=== PATIENT | male | born 1990 | race American Indian/Alaskan Native ===

== ENCOUNTER 2021-08-15 22:07 | Emergency (ER) | payer SELFPAY ==
[2021-08-16] MEDS ORDERED: LORazepam 2 MG/ML VIAL IM PRN ×2 (00:18→06:13)
[2021-08-16] MEDS ORDERED: HALOPERIDOL LACTATE 5 MG/1 ML INJ IM PRN (00:18)
[2021-08-16] MEDS ORDERED: diphenhydrAMINE 50 MG/ML VIAL IM PRN (00:18)
--- NOTE | 2021-08-16 00:28 | Emergency Department Report ---
HPI - HPI HPI: Room 20 The patient is a 31-year-old male present with a chief complaint of suicidal ideation. Patient has a history of schizophrenia and states he developed suicidal ideation today. Patient admits to suicidal ideation and auditory hallucinations. Per EMS the patient was "out of control" with family and EMS was called. No specifics were given to EMS about the patient's behavior. EMS arrived on scene states that the patient was erratic and spitting requiring a spit shield to be placed over the patient as well as restraints. Patient was administered 5 of Versed and 5 Haldol by EMS prior to arrival. In the ED the patient is more calm with flat affect and states he tried to kill himself today by jumping off of a balcony. Patient complains of back pain. Patient also admits of auditory hallucinations stating the voices say "the illuminati..." <HENRY ERIC - Last Filed: 08/16/21 03:05> <DANE KIRKLAND - Last Filed: 08/16/21 12:04> - General Chief Complaint: Psych Time Seen by Provider: 08/16/21 00:09 ED Past Medical Hx - Past Medical History Hx Hypertension: Yes Hx Psychiatric Treatment: Yes (Schizophrenia) Additional medical history: schizophrenia - Surgical History Past Surgical History?: No - Family History Family history: no significant - Social History Smoking Status: Current Every Day Smoker (1/5 pack/day) Substance Use Type: None (Denies illicit drug use), Alcohol (Occasional) <HENRY ERIC - Last Filed: 08/16/21 03:05> ED Review of Systems ROS: Stated complaint: MH Other details as noted in HPI Constitutional: no symptoms reported Eyes: denies: eye pain ENT: denies: throat pain Respiratory: no symptoms reported Cardiovascular: denies: chest pain Endocrine: no symptoms reported Gastrointestinal: denies: abdominal pain Genitourinary: denies: dysuria Musculoskeletal: back pain Neurological: denies: headache Psychiatric: auditory hallucinations, suicidal thoughts <HENRY ERIC - Last Filed: 08/16/21 03:05> ROS: Stated complaint: MH Other details as noted in HPI <DANE KIRKLAND - Last Filed: 08/16/21 12:04> Physical Exam - Physical Exam Vital Signs: Vital Signs 08/15/21 22:08 Pulse Rate 127 H Respiratory 18 Rate Blood Pressure 122/60 O2 Sat by Pulse 96 Oximetry Physical Exam: GENERAL: The patient is well-developed well-nourished male lying on stretcher not appearing to be in acute distress. [] HEENT: Normocephalic. Atraumatic. Extraocular motions are intact. Patient has moist mucous membranes. NECK: Supple. Trachea midline CHEST/LUNGS: Clear to auscultation. There is no respiratory distress noted. HEART/CARDIOVASCULAR: Regular. There is tachycardia. There is no gallop rub or murmur. ABDOMEN: Abdomen is soft, nontender. Patient has normal bowel sounds. There is no abdominal distention. SKIN: There is no rash. There is no edema. There is no diaphoresis. NEURO: The patient is awake, alert, and oriented with a flat affect. The patient is cooperative. The patient has no focal neurologic deficits. The patient has normal speech. GCS 15 MUSCULOSKELETAL: There is mild lower thoracic/upper lumbar discomfort to palpation. No axial step-off. There is no evidence of acute injury. <HENRY ERIC - Last Filed: 08/16/21 03:05> - Physical Exam Vital Signs: Vital Signs 08/15/21 08/16/21 22:08 06:11 Temperature 98.3 F Pulse Rate 127 H 85 Respiratory 18 18 Rate Blood Pressure 122/60 Blood Pressure 124/88 [Right] O2 Sat by Pulse 96 98 Oximetry <DANE KIRKLAND - Last Filed: 08/16/21 12:04> ED Course Vital Signs 08/15/21 22:08 Pulse Rate 127 H Respiratory 18 Rate Blood Pressure 122/60 O2 Sat by Pulse 96 Oximetry <HENRY ERIC - Last Filed: 08/16/21 03:05> Vital Signs 08/15/21 08/16/21 22:08 06:11 Temperature 98.3 F Pulse Rate 127 H 85 Respiratory 18 18 Rate Blood Pressure 122/60 Blood Pressure 124/88 [Right] O2 Sat by Pulse 96 98 Oximetry - Reevaluation(s) Reevaluation #1: 08/16/21 06:12 Assumed care of patient from overnight physician, Dr. Eric Repeat vital signs are reviewed and appreciated. Patient resting comfortably in stretcher and in no acute distress. Vital signs normalized. Initial basic metabolic panel reviewed and appreciated, decreased CO2 likely secondary to history of hyperventilation, likely secondary to acute psychosis. A 1013 signed. Repeat basic metabolic panel is ordered. Reassess. 08/16/21 09:50 Repeat basic metabolic panel is markedly improved and essentially within normal limits. Patient resting comfortably in stretcher and in no acute distress. COVID swab is pending, and the emergency room will follow along as the patient provides the sample. At this point in time, the patient does not appear to have an immediate medical contraindication to psychiatric admission, evaluation, consultation and placement 08/16/21 12:02 Laboratory studies are unremarkable. The psychiatric team have interviewed the patient and recommended that he does not meet criteria for 1013 hold or involuntary hold. Therefore, this patient will be discharged. Resources provided by [facility]. <DANE KIRKLAND - Last Filed: 08/16/21 12:04> ED Medical Decision Making - Lab Data Result diagrams: 08/16/21 01:10 08/16/21 01:10 - Radiology Data Radiology results: report reviewed (Thoracic spine x-ray, lumbar spine x-ray), image reviewed (Thoracic spine x-ray, lumbar spine x-ray) interpreted by me: Thoracic spine x-ray-no definite fracture seen Lumbar spine x-ray-no acute fracture seen [facility] [address] [place] [address] XRay Report Signed Patient: NIA SKELTON JR MR#: [id number] : 1990 Acct:[id number] Age/Sex: 31 / M ADM Date: 08/15/21 Loc: ED Attending Dr: Ordering Physician: HENRY ERIC MD Date of Service: 08/16/21 Procedure(s): XR spine thoracic 2V Accession Number(s): [id number] cc: HENRY ERIC MD Fluoro Time In Minutes: THORACIC SPINE 2 VIEWS INDICATION / CLINICAL INFORMATION: Pain after reported jump from [place]. COMPARISON: None available. FINDINGS: VERTEBRAE: No acute fracture. No significant malalignment. DISC SPACES / FACET JOINTS:No significant abnormality. PARASPINAL SOFT TISSUES:No significant abnormality. ADDITIONAL FINDINGS: None. IMPRESSION: 1. No evidence of acute osseous injury. No significant degenerative changes. Signer Name: Vincenzo Alexander II, MD Signed: 08/16/2021 12:56 AM Workstation Name: [id number] Transcribed By: JESSICA Dictated By: VINCENZO ALEXANDER II, MD Electronically Authenticated By: VINCENZO ALEXANDER II, MD Signed Date/Time: 08/16/2155 DD/ TD/TT: Print Cancel [facility] [address] [place] [address] XRay Report Signed Patient: NIA SKELTON JR MR#: [id number] : 1990 Acct:[id number] Age/Sex: 31 / M ADM Date: 08/15/21 Loc: ED Attending Dr: Ordering Physician: HENRY ERIC MD Date of Service: 08/16/21 Procedure(s): XR spine lumbosacral 2-3V Accession Number(s): [id number] cc: HENRY ERIC MD Fluoro Time In Minutes: LUMBAR SPINE 3 VIEWS INDICATION / CLINICAL INFORMATION: Pain after reported jump from [employer]. COMPARISON: None available. FINDINGS: VERTEBRAE: No acute fracture. Minimal scoliotic deformity. DISC SPACES / FACET JOINTS:No significant abnormality. PARASPINAL SOFT TISSUES:No significant abnormality. ADDITIONAL FINDINGS: None. IMPRESSION: 1. No significant degenerative changes, no acute findings. Signer Name: Vincenzo Alexander II, MD Signed: 08/16/2021 12:57 AM Workstation Name: [id number] Transcribed By: JESSICA Dictated By: VINCENZO ALEXANDER II, MD Electronically Authenticated By: VINCENZO ALEXANDER II, MD Signed Date/Time: 08/16/2156 DD/ TD/TT: - Medical Decision Making Patient agitated and hyperventilating prior to medication likely reason for decreased CO2 on labs. Recheck chemistries after sedation - Differential Diagnosis Suicidal ideation, lumbar strain, lumbar fracture <HENRY ERIC - Last Filed: 08/16/21 03:05> - Lab Data Result diagrams: 08/16/21 01:10 08/16/21 08:19 Vital Signs 08/15/21 08/16/21 22:08 06:11 Temperature 98.3 F Pulse Rate 127 H 85 Respiratory 18 18 Rate Blood Pressure 122/60 Blood Pressure 124/88 [Right] O2 Sat by Pulse 96 98 Oximetry Lab Results 08/16/21 08/16/21 08/16/21 Range/Units 01:10 01:10 01:10 WBC 10.3 (4.5-11.0) K/mm3 RBC 4.88 (3.65-5.03) M/mm3 Hgb 14.0 (11.8-15.2) gm/dl Hct 42.7 (35.5-45.6) % MCV 88 (84-94) fl MCH 29 (28-32) pg MCHC 33 (32-34) % RDW 13.8 (13.2-15.2) % Plt Count 316 (140-440) K/mm3 Lymph % (Auto) 20.9 (13.4-35.0) % [place] % (Auto) 9.5 H (0.0-7.3) % Eos % (Auto) 0.1 (0.0-4.3) % Baso % (Auto) 0.4 (0.0-1.8) % Lymph # (Auto) 2.1 (1.2-5.4) K/mm3 [place] # (Auto) 1.0 H (0.0-0.8) K/mm3 Eos # (Auto) 0.0 (0.0-0.4) K/mm3 Baso # (Auto) 0.0 (0.0-0.1) K/mm3 Seg Neutrophils % 69.1 (40.0-70.0) % Seg Neutrophils # 7.1 (1.8-7.7) K/mm3 Sodium 143 (137-145) mmol/L Potassium 3.4 L (3.6-5.0) mmol/L Chloride 100.6 (98-107) mmol/L Carbon Dioxide 13 L (22-30) mmol/L Anion Gap 33 mmol/L BUN 11 (9-20) mg/dL Creatinine 1.8 H (0.8-1.3) mg/dL Estimated GFR 54 ml/min BUN/Creatinine Ratio 6 % Glucose 152 H (75-100) mg/dL Calcium 10.0 (8.4-10.2) mg/dL Total Bilirubin 0.50 (0.1-1.2) mg/dL AST 22 (5-40) units/L ALT 24 (7-56) units/L Alkaline Phosphatase 97 (35-129) units/L Total Protein 7.9 (6.3-8.2) g/dL Albumin 4.8 (3.9-5) g/dL Albumin/Globulin Ratio 1.5 % Urine Color (Yellow) Urine Turbidity (Clear) Urine pH (5.0-7.0) Ur Specific [place] (1.003-1.030) Urine Protein (Negative) mg/dL Urine Glucose (UA) (Negative) mg/dL Urine Ketones (Negative) mg/dL Urine Blood (Negative) Urine Nitrite (Negative) Urine Bilirubin (Negative) Urine Urobilinogen (<2.0) mg/dL Ur Leukocyte Esterase (Negative) Urine WBC (Auto) (0.0-6.0) /HPF Urine RBC (Auto) (0.0-6.0) /HPF U Epithel Cells (Auto) (0-13.0) /HPF Urine Mucus /HPF Salicylates < 0.3 L (2.8-20.0) mg/dL Urine Opiates Screen Urine Methadone Screen Acetaminophen (10.0-30.0) ug/mL Ur Barbiturates Screen Ur Phencyclidine Scrn Ur Amphetamines Screen U Benzodiazepines Scrn Urine Cocaine Screen U Marijuana (THC) Screen Drugs of Abuse Note Plasma/Serum Alcohol (0-0.07) % 08/16/21 08/16/21 08/16/21 Range/Units 01:10 01:10 01:31 WBC (4.5-11.0) K/mm3 RBC (3.65-5.03) M/mm3 Hgb (11.8-15.2) gm/dl Hct (35.5-45.6) % MCV (84-94) fl MCH (28-32) pg MCHC (32-34) % RDW (13.2-15.2) % Plt Count (140-440) K/mm3 Lymph % (Auto) (13.4-35.0) % [place] % (Auto) (0.0-7.3) % Eos % (Auto) (0.0-4.3) % Baso % (Auto) (0.0-1.8) % Lymph # (Auto) (1.2-5.4) K/mm3 [place] # (Auto) (0.0-0.8) K/mm3 Eos # (Auto) (0.0-0.4) K/mm3 Baso # (Auto) (0.0-0.1) K/mm3 Seg Neutrophils % (40.0-70.0) % Seg Neutrophils # (1.8-7.7) K/mm3 Sodium (137-145) mmol/L Potassium (3.6-5.0) mmol/L Chloride (98-107) mmol/L Carbon Dioxide (22-30) mmol/L Anion Gap mmol/L BUN (9-20) mg/dL Creatinine (0.8-1.3) mg/dL Estimated GFR ml/min BUN/Creatinine Ratio % Glucose (75-100) mg/dL Calcium (8.4-10.2) mg/dL Total Bilirubin (0.1-1.2) mg/dL AST (5-40) units/L ALT (7-56) units/L Alkaline Phosphatase (35-129) units/L Total Protein (6.3-8.2) g/dL Albumin (3.9-5) g/dL Albumin/Globulin Ratio % Urine Color Yellow (Yellow) Urine Turbidity Clear (Clear) Urine pH 5.0 (5.0-7.0) Ur Specific [place] 1.014 (1.003-1.030) Urine Protein <15 mg/dl (Negative) mg/dL Urine Glucose (UA) Neg (Negative) mg/dL Urine Ketones Neg (Negative) mg/dL Urine Blood Neg (Negative) Urine Nitrite Neg (Negative) Urine Bilirubin Neg (Negative) Urine Urobilinogen < 2.0 (<2.0) mg/dL Ur Leukocyte Esterase Neg (Negative) Urine WBC (Auto) 2.0 (0.0-6.0) /HPF Urine RBC (Auto) 1.0 (0.0-6.0) /HPF U Epithel Cells (Auto) 1.0 (0-13.0) /HPF Urine Mucus Few /HPF Salicylates (2.8-20.0) mg/dL Urine Opiates Screen Urine Methadone Screen Acetaminophen 5.0 L (10.0-30.0) ug/mL Ur Barbiturates Screen Ur Phencyclidine Scrn Ur Amphetamines Screen U Benzodiazepines Scrn Urine Cocaine Screen U Marijuana (THC) Screen Drugs of Abuse Note Plasma/Serum Alcohol < 0.01 (0-0.07) % 08/16/21 Range/Units 01:31 WBC (4.5-11.0) K/mm3 RBC (3.65-5.03) M/mm3 Hgb (11.8-15.2) gm/dl Hct (35.5-45.6) % MCV (84-94) fl MCH (28-32) pg MCHC (32-34) % RDW (13.2-15.2) % Plt Count (140-440) K/mm3 Lymph % (Auto) (13.4-35.0) % [place] % (Auto) (0.0-7.3) % Eos % (Auto) (0.0-4.3) % Baso % (Auto) (0.0-1.8) % Lymph # (Auto) (1.2-5.4) K/mm3 [place] # (Auto) (0.0-0.8) K/mm3 Eos # (Auto) (0.0-0.4) K/mm3 Baso # (Auto) (0.0-0.1) K/mm3 Seg Neutrophils % (40.0-70.0) % Seg Neutrophils # (1.8-7.7) K/mm3 Sodium (137-145) mmol/L Potassium (3.6-5.0) mmol/L Chloride (98-107) mmol/L Carbon Dioxide (22-30) mmol/L Anion Gap mmol/L BUN (9-20) mg/dL Creatinine (0.8-1.3) mg/dL Estimated GFR ml/min BUN/Creatinine Ratio % Glucose (75-100) mg/dL Calcium (8.4-10.2) mg/dL Total Bilirubin (0.1-1.2) mg/dL AST (5-40) units/L ALT (7-56) units/L Alkaline Phosphatase (35-129) units/L Total Protein (6.3-8.2) g/dL Albumin (3.9-5) g/dL Albumin/Globulin Ratio % Urine Color (Yellow) Urine Turbidity (Clear) Urine pH (5.0-7.0) Ur Specific [place] (1.003-1.030) Urine Protein (Negative) mg/dL Urine Glucose (UA) (Negative) mg/dL Urine Ketones (Negative) mg/dL Urine Blood (Negative) Urine Nitrite (Negative) Urine Bilirubin (Negative) Urine Urobilinogen (<2.0) mg/dL Ur Leukocyte Esterase (Negative) Urine WBC (Auto) (0.0-6.0) /HPF Urine RBC (Auto) (0.0-6.0) /HPF U Epithel Cells (Auto) (0-13.0) /HPF Urine Mucus /HPF Salicylates (2.8-20.0) mg/dL Urine Opiates Screen Presumptive negative Urine Methadone Screen Presumptive negative Acetaminophen (10.0-30.0) ug/mL Ur Barbiturates Screen Presumptive negative Ur Phencyclidine Scrn Presumptive negative Ur Amphetamines Screen Presumptive negative U Benzodiazepines Scrn Presumptive positive Urine Cocaine Screen Presumptive negative U Marijuana (THC) Screen Presumptive negative Drugs of Abuse Note Disclamer Plasma/Serum Alcohol (0-0.07) % Lab Results 08/16/21 08/16/21 08/16/21 Range/Units 01:10 01:10 01:10 WBC 10.3 (4.5-11.0) K/mm3 RBC 4.88 (3.65-5.03) M/mm3 Hgb 14.0 (11.8-15.2) gm/dl Hct 42.7 (35.5-45.6) % MCV 88 (84-94) fl MCH 29 (28-32) pg MCHC 33 (32-34) % RDW 13.8 (13.2-15.2) % Plt Count 316 (140-440) K/mm3 Lymph % (Auto) 20.9 (13.4-35.0) % [place] % (Auto) 9.5 H (0.0-7.3) % Eos % (Auto) 0.1 (0.0-4.3) % Baso % (Auto) 0.4 (0.0-1.8) % Lymph # (Auto) 2.1 (1.2-5.4) K/mm3 [place] # (Auto) 1.0 H (0.0-0.8) K/mm3 Eos # (Auto) 0.0 (0.0-0.4) K/mm3 Baso # (Auto) 0.0 (0.0-0.1) K/mm3 Seg Neutrophils % 69.1 (40.0-70.0) % Seg Neutrophils # 7.1 (1.8-7.7) K/mm3 Sodium 143 (137-145) mmol/L Potassium 3.4 L (3.6-5.0) mmol/L Chloride 100.6 (98-107) mmol/L Carbon Dioxide 13 L (22-30) mmol/L Anion Gap 33 mmol/L BUN 11 (9-20) mg/dL Creatinine 1.8 H (0.8-1.3) mg/dL Estimated GFR 54 ml/min BUN/Creatinine Ratio 6 % Glucose 152 H (75-100) mg/dL Calcium 10.0 (8.4-10.2) mg/dL Total Bilirubin 0.50 (0.1-1.2) mg/dL AST 22 (5-40) units/L ALT 24 (7-56) units/L Alkaline Phosphatase 97 (35-129) units/L Total Protein 7.9 (6.3-8.2) g/dL Albumin 4.8 (3.9-5) g/dL Albumin/Globulin Ratio 1.5 % Urine Color (Yellow) Urine Turbidity (Clear) Urine pH (5.0-7.0) Ur Specific [place] (1.003-1.030) Urine Protein (Negative) mg/dL Urine Glucose (UA) (Negative) mg/dL Urine Ketones (Negative) mg/dL Urine Blood (Negative) Urine Nitrite (Negative) Urine Bilirubin (Negative) Urine Urobilinogen (<2.0) mg/dL Ur Leukocyte Esterase (Negative) Urine WBC (Auto) (0.0-6.0) /HPF Urine RBC (Auto) (0.0-6.0) /HPF U Epithel Cells (Auto) (0-13.0) /HPF Urine Mucus /HPF Salicylates < 0.3 L (2.8-20.0) mg/dL Urine Opiates Screen Urine Methadone Screen Acetaminophen (10.0-30.0) ug/mL Ur Barbiturates Screen Ur Phencyclidine Scrn Ur Amphetamines Screen U Benzodiazepines Scrn Urine Cocaine Screen U Marijuana (THC) Screen Drugs of Abuse Note Plasma/Serum Alcohol (0-0.07) % 08/16/21 08/16/21 08/16/21 Range/Units 01:10 01:10 01:31 WBC (4.5-11.0) K/mm3 RBC (3.65-5.03) M/mm3 Hgb (11.8-15.2) gm/dl Hct (35.5-45.6) % MCV (84-94) fl MCH (28-32) pg MCHC (32-34) % RDW (13.2-15.2) % Plt Count (140-440) K/mm3 Lymph % (Auto) (13.4-35.0) % [place] % (Auto) (0.0-7.3) % Eos % (Auto) (0.0-4.3) % Baso % (Auto) (0.0-1.8) % Lymph # (Auto) (1.2-5.4) K/mm3 [place] # (Auto) (0.0-0.8) K/mm3 Eos # (Auto) (0.0-0.4) K/mm3 Baso # (Auto) (0.0-0.1) K/mm3 Seg Neutrophils % (40.0-70.0) % Seg Neutrophils # (1.8-7.7) K/mm3 Sodium (137-145) mmol/L Potassium (3.6-5.0) mmol/L Chloride (98-107) mmol/L Carbon Dioxide (22-30) mmol/L Anion Gap mmol/L BUN (9-20) mg/dL Creatinine (0.8-1.3) mg/dL Estimated GFR ml/min BUN/Creatinine Ratio % Glucose (75-100) mg/dL Calcium (8.4-10.2) mg/dL Total Bilirubin (0.1-1.2) mg/dL AST (5-40) units/L ALT (7-56) units/L Alkaline Phosphatase (35-129) units/L Total Protein (6.3-8.2) g/dL Albumin (3.9-5) g/dL Albumin/Globulin Ratio % Urine Color Yellow (Yellow) Urine Turbidity Clear (Clear) Urine pH 5.0 (5.0-7.0) Ur Specific [place] 1.014 (1.003-1.030) Urine Protein <15 mg/dl (Negative) mg/dL Urine Glucose (UA) Neg (Negative) mg/dL Urine Ketones Neg (Negative) mg/dL Urine Blood Neg (Negative) Urine Nitrite Neg (Negative) Urine Bilirubin Neg (Negative) Urine Urobilinogen < 2.0 (<2.0) mg/dL Ur Leukocyte Esterase Neg (Negative) Urine WBC (Auto) 2.0 (0.0-6.0) /HPF Urine RBC (Auto) 1.0 (0.0-6.0) /HPF U Epithel Cells (Auto) 1.0 (0-13.0) /HPF Urine Mucus Few /HPF Salicylates (2.8-20.0) mg/dL Urine Opiates Screen Urine Methadone Screen Acetaminophen 5.0 L (10.0-30.0) ug/mL Ur Barbiturates Screen Ur Phencyclidine Scrn Ur Amphetamines Screen U Benzodiazepines Scrn Urine Cocaine Screen U Marijuana (THC) Screen Drugs of Abuse Note Plasma/Serum Alcohol < 0.01 (0-0.07) % 08/16/21 08/16/21 Range/Units 01:31 08:19 WBC (4.5-11.0) K/mm3 RBC (3.65-5.03) M/mm3 Hgb (11.8-15.2) gm/dl Hct (35.5-45.6) % MCV (84-94) fl MCH (28-32) pg MCHC (32-34) % RDW (13.2-15.2) % Plt Count (140-440) K/mm3 Lymph % (Auto) (13.4-35.0) % [place] % (Auto) (0.0-7.3) % Eos % (Auto) (0.0-4.3) % Baso % (Auto) (0.0-1.8) % Lymph # (Auto) (1.2-5.4) K/mm3 [place] # (Auto) (0.0-0.8) K/mm3 Eos # (Auto) (0.0-0.4) K/mm3 Baso # (Auto) (0.0-0.1) K/mm3 Seg Neutrophils % (40.0-70.0) % Seg Neutrophils # (1.8-7.7) K/mm3 Sodium 141 (137-145) mmol/L Potassium 4.3 D (3.6-5.0) mmol/L Chloride 106.0 (98-107) mmol/L Carbon Dioxide 22 D (22-30) mmol/L Anion Gap 17 mmol/L BUN 10 (9-20) mg/dL Creatinine 1.2 (0.8-1.3) mg/dL Estimated GFR > 60 ml/min BUN/Creatinine Ratio 8 % Glucose 80 (75-100) mg/dL Calcium 9.9 (8.4-10.2) mg/dL Total Bilirubin (0.1-1.2) mg/dL AST (5-40) units/L ALT (7-56) units/L Alkaline Phosphatase (35-129) units/L Total Protein (6.3-8.2) g/dL Albumin (3.9-5) g/dL Albumin/Globulin Ratio % Urine Color (Yellow) Urine Turbidity (Clear) Urine pH (5.0-7.0) Ur Specific [place] (1.003-1.030) Urine Protein (Negative) mg/dL Urine Glucose (UA) (Negative) mg/dL Urine Ketones (Negative) mg/dL Urine Blood (Negative) Urine Nitrite (Negative) Urine Bilirubin (Negative) Urine Urobilinogen (<2.0) mg/dL Ur Leukocyte Esterase (Negative) Urine WBC (Auto) (0.0-6.0) /HPF Urine RBC (Auto) (0.0-6.0) /HPF U Epithel Cells (Auto) (0-13.0) /HPF Urine Mucus /HPF Salicylates (2.8-20.0) mg/dL Urine Opiates Screen Presumptive negative Urine Methadone Screen Presumptive negative Acetaminophen (10.0-30.0) ug/mL Ur Barbiturates Screen Presumptive negative Ur Phencyclidine Scrn Presumptive negative Ur Amphetamines Screen Presumptive negative U Benzodiazepines Scrn Presumptive positive Urine Cocaine Screen Presumptive negative U Marijuana (THC) Screen Presumptive negative Drugs of Abuse Note Disclamer Plasma/Serum Alcohol (0-0.07) % <DANE KIRKLAND - Last Filed: 08/16/21 12:04> Critical care attestation.: If time is entered above; I have spent that time in minutes in the direct care of this critically ill patient, excluding procedure time. <HENRY ERIC - Last Filed: 08/16/21 03:05> Critical care attestation.: If time is entered above; I have spent that time in minutes in the direct care of this critically ill patient, excluding procedure time. <DANE KIRKLAND - Last Filed: 08/16/21 12:04> ED Disposition <HENRY ERIC - Last Filed: 08/16/21 03:05> Is pt being admited?: No Does the pt Need Aspirin: No <DANE KIRKLAND - Last Filed: 08/16/21 12:04> Clinical Impression: Encounter for behavioral health screening Disposition: HOME / SELF CARE / HOMELESS Condition: Stable Additional Instructions: Please continue current outpatient medications. Please avoid consumption of alcohol, tobacco and smoke products. Follow-up with outpatient resources that have have been provided to you. Follow-up with your primary care doctor within the next month. Follow-up with a psychiatrist within the next week. Please return to the emergency room right away with new pain, worsened pain, migration of pain, projectile vomiting, change in mental status, confusion, inability tolerate liquid feeds, new, worsened or different symptoms not present on the initial emergency room evaluation Professional and Agency Contacts To help [facility] (09/11) [place] Crisis Line: Suicide Prevention Line: Crisis Text Line: Text START to 209775 Emergency: 911 Outpatient COMMUNITY Behavioral Health Resources: [facility]: [facility] [address] [place], [place] [address] [facility] [address] [place] [address] Wednesday thru Wednesday - 8am - 5pm Call to schedule an assessment for mental health and substance abuse programs [facility] Address: [address] [place] [address] Wednesday thru Wednesday- 7am-2pm [facility] Address: [address] [place] [address] Wednesday thru Wednesday: 8:30AM-5PM Referrals: [facility] [Provider Group] - 3-5 Days [facility] [Outside] - 3-5 Days [facility] [Outside] - 3-5 Days
[2021-08-16] MEDS ORDERED: ZIPRASIDONE MESYLATE 20 MG VIAL IM ONE ×2 (00:35→00:45)
--- NOTE | 2021-08-16 01:01 | XRay Report ---
THORACIC SPINE 2 VIEWS INDICATION / CLINICAL INFORMATION: Pain after reported jump from [place]. COMPARISON: None available. FINDINGS: VERTEBRAE: No acute fracture. No significant malalignment. DISC SPACES / FACET JOINTS:No significant abnormality. PARASPINAL SOFT TISSUES:No significant abnormality. ADDITIONAL FINDINGS: None. IMPRESSION: 1. No evidence of acute osseous injury. No significant degenerative changes. Signer Name: Sebastian Roman II, MD Signed: 08/16/2021 12:56 AM Workstation Name: [id number]
--- NOTE | 2021-08-16 01:02 | XRay Report ---
LUMBAR SPINE 3 VIEWS INDICATION / CLINICAL INFORMATION: Pain after reported jump from balcony. COMPARISON: None available. FINDINGS: VERTEBRAE: No acute fracture. Minimal scoliotic deformity. DISC SPACES / FACET JOINTS:No significant abnormality. PARASPINAL SOFT TISSUES:No significant abnormality. ADDITIONAL FINDINGS: None. IMPRESSION: 1. No significant degenerative changes, no acute findings. Signer Name: Sebastian Roman II, MD Signed: 08/16/2021 12:57 AM Workstation Name: [id number]
[2021-08-16 01:29] LABS: Basophils % (Auto) 0.4 % (0.0-1.8); Eosinophils % (Auto) 0.1 % (0.0-4.3); Hematocrit 42.7 % (35.5-45.6); Lymphocytes # (Auto) 2.1 K/mm3 (1.2-5.4); Lymphocytes % (Auto) 20.9 % (13.4-35.0); Mean Corpuscular HGB Conc 33 % (32-34); Mean Corpuscular Volume 88 fl (84-94); Monocytes % (Auto) 9.5 % (0.0-7.3); Platelet Count 316 K/mm3 (140-440); Red Blood Count 4.88 M/mm3 (3.65-5.03); Red Cell Distribution Width 13.8 % (13.2-15.2)
[2021-08-16 01:52] LABS: Albumin 4.8 g/dL (3.9-5)
[2021-08-16 01:55] LABS: Amphetamine Screen,Urine PRESUMPTIVE NEGATIVE; Benzodiazepines Screen,Urine PRESUMPTIVE POSITIVE; Cannabinoid Screen,Urine PRESUMPTIVE NEGATIVE; Cocaine Screen,Urine PRESUMPTIVE NEGATIVE; Methadone Screen,Urine PRESUMPTIVE NEGATIVE; Opiate Screen,Urine PRESUMPTIVE NEGATIVE
[2021-08-16 01:59] LABS: Bilirubin,Urine NEG (Negative); Blood,Urine NEG (Negative); Color,Urine Yellow (Yellow); Mucus,Urine FEW /HPF; Protein,Urine <15 mg/dL mg/dL (Negative); Urobilinogen,Urine < 2.0 mg/dL (<2.0)
[2021-08-16] MEDS ORDERED: POTASSIUM CHLORIDE ER 20 MEQ TAB PO ONE (02:56)
[2021-08-16] MEDS ORDERED: SODIUM CHLORIDE 0.9% 1000 ML 1,000 ML IV ONE (02:57)
[2021-08-16 09:18] LABS: BUN/Creatinine Ratio 8; Blood Urea Nitrogen 10 mg/dL (9-20); Calcium 9.9 mg/dL (8.4-10.2); Hemolysis Index 2
--- NOTE | 2021-08-16 11:29 | Consultation ---
History of Present Illness - Reason for Consult Consult date: 08/16/21 Reason for consult: suicidal ideation - History of Present Psychiatric Illness ED Note: The patient is a 31-year-old male present with a chief complaint of suicidal ideation. Patient has a history of schizophrenia and states he developed suicidal ideation today. Patient admits to suicidal ideation and auditory hallucinations. Per EMS the patient was "out of control" with family a nd EMS was called. No specifics were given to EMS about the patient's behavior. EMS arrived on scene states that the patient was erratic and spitting requiring a spit shield to be placed over the patient as well as restraints. Patient was administered 5 of Versed and 5 Haldol by EMS prior to arrival. In the ED the patient is more calm with flat affect and states he tried to kill himself today by jumping off of a balcony. Patient complains of back pain. Patient also admits of auditory hallucinations stating the voices say "the illuminati... The patient is a 31 year old male with history of schizophrenia who was admitted to the ED with suicidal ideation. In my encounter with the patient, he is calm, alert and oriented to self. The patient states " I tried to kill myself yesterday." The patient endorses depression and commanding auditory hallucination; he states voices " telling me to kill myself, just ." The patient presents with moderate tremors. Collateral information from patient mother @ [phone]. She reports that the patient was recently discharged from [facility] about a week ago. She states that the patient's medications were changed at [facility], this marketing underwriter requested for the list of the patient's new medications but she states she would call back with it. States that the patient has an upcoming appointment with [facility] on 08/22. PSYCH HISTORY Diagnoses: Schizophrenia Suicide attempts or Self-harm behavior:Yes Prior psychiatric hospitalizations: Yes Substance Abuse history: Denies Previous psychiatric medications tried: Haldol, Zyprexa Outpatient treatment: [facility] PAST MEDICAL HISTORY: Family Psychiatric History: None reported or documented SOCIAL HISTORY Marital Status: Single Living Arrangements: with mother Employment Status: Unemployed Access to guns/weapons: Denies Education: Unknown History of Abuse: Denies Legal History: none MENTAL STATUS EXAMINATION General Appearance and Behavior: Age appropriate, good hygiene, wearing appropriate clothes, calm, cooperative, polite Cooperation: Participating Psychomotor Behavior: unremarkable and within normal limits Mood: Depressed Affect and affective range: congruent with mood Thought Process: Goal directed Thought Content: Hallucinations Speech: Normal volume, Regular rate and rhythm, Suicidal Ideation: Denies Homicidal Ideation:Denies Hallucinations: Command auditory hallucinations Delusions:None Impulse Control: Questionable Insight and Judgment: Limited insight and poor judgment, Memory: abnormal Attention: attentive Orientation: Alert, oriented Assessment and Plan (1) Schizophrenia Treatment Plan 1013 Zyprexa 5mg po BID Cogentin 1mg po BID PSYCHOTHERAPY: Supportive psychotherapy provided MEDICAL: Per primary team DELIRIUM PRECAUTIONS: Please re-orient patient frequently, keep lights on during the day, and minimize benzodiazepines and opiates as these medications could worsen patient's confusion. 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 Thanks. Thank you for the consult. Case staffed with Dr. De Los Santos Medications and Allergies Medications and Allergies Allergies Allergy/AdvReac Type Severity Reaction Status Date / Time No Known Allergies Allergy Unverified 08/15/21 22:26 Active Meds: Active Medications Diphenhydramine HCl (Diphenhydramine 50 Mg/Ml Vial) 50 mg IM Q6H PRN PRN Reason: Agitation Last Admin: 08/16/21 01:37 Dose: 50 mg Haloperidol Lactate (Haloperidol Lactate 5 Mg/1 Ml Inj) 10 mg IM Q8H PRN PRN Reason: Agitation Last Admin: 08/16/21 01:37 Dose: 10 mg Lorazepam (Lorazepam 2 Mg/Ml Vial) 2 mg IM Q4HR PRN PRN Reason: Agitation Mental Status Exam - Vital signs Last Vital Signs Temp 98.3 F 08/16/21 06:11 Pulse 85 08/16/21 06:11 Resp 18 08/16/21 06:11 BP 124/88 08/16/21 06:11 Pulse Ox 98 08/16/21 06:11 Results Result Diagrams: 08/16/21 01:10 08/16/21 08:19 Abnormal lab results 08/16/21 08/16/21 08/16/21 Range/Units 01:10 01:10 01:10 Norman % (Auto) 9.5 H (0.0-7.3) % Norman # (Auto) 1.0 H (0.0-0.8) K/mm3 Potassium 3.4 L (3.6-5.0) mmol/L Carbon Dioxide 13 L (22-30) mmol/L Creatinine 1.8 H (0.8-1.3) mg/dL Glucose 152 H (75-100) mg/dL Salicylates < 0.3 L (2.8-20.0) mg/dL Acetaminophen (10.0-30.0) ug/mL 08/16/21 Range/Units 01:10 Norman % (Auto) (0.0-7.3) % Norman # (Auto) (0.0-0.8) K/mm3 Potassium (3.6-5.0) mmol/L Carbon Dioxide (22-30) mmol/L Creatinine (0.8-1.3) mg/dL Glucose (75-100) mg/dL Salicylates (2.8-20.0) mg/dL Acetaminophen 5.0 L (10.0-30.0) ug/mL All other labs normal.
[2021-08-16] MEDS ORDERED: BENZTROPINE 1 MG TAB PO SCH (12:00)
[2021-08-17 10:28] VITALS: BP 124/80
--- NOTE | 2021-08-17 11:07 | Progress Note ---
Subjective - Reason for Consult Consult date: 08/17/21 Reason for consult: agitation - Chief Complaint Chief complaint: The patient was seen this morning. He reports doing well. No aggressive behaviors reported. The patient denies any current suicidal/homicidal ideation and denies hallucinations. REVIEW OF SYSTEMS Constitutional: Negative for weight loss ENT: Negative for stridor Respiratory: Negative for cough or hemoptysis All other systems reviewed and are negative MENTAL STATUS EXAMINATION General Appearance and Behavior: Age appropriate, good hygiene, wearing appropriate clothes, calm, cooperative, polite Cooperation: Participating Psychomotor Behavior: unremarkable and within normal limits Mood: Depressed Affect and affective range: congruent with mood Thought Process: Goal directed Thought Content: Denies Speech: Normal volume, Regular rate and rhythm, Suicidal Ideation: Denies Homicidal Ideation:Denies Hallucinations: Denies Delusions:None Impulse Control: Normal Insight and Judgment: Limited insight and judgment, Memory: abnormal Attention: attentive Orientation: Alert, oriented Assessment and Plan (1) Schizophrenia Treatment Plan [place] 1013 Zyprexa 5mg po BID Cogentin 1mg po BID PSYCHOTHERAPY: Supportive psychotherapy provided MEDICAL: Per primary team DELIRIUM PRECAUTIONS: Please re-orient patient frequently, keep lights on during the day, and minimize benzodiazepines and opiates as these medications could worsen patient's confusion. 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 Will sign off. Thanks. Thank you for the consult. Case staffed with Dr. De Los Santos Medications and Allergies Mental Status Exam - Vital signs Last Vital Signs Temp 98.2 F 08/17/21 10:27 Pulse 64 08/17/21 10:27 Resp 16 08/17/21 10:27 BP 124/80 08/17/21 10:27 Pulse Ox 98 08/17/21 10:27
== END 2021-08-17 09:30 | disposition home or self-care (01) ==
LOC: ED 22:07
DX: Z13.30 Encounter for screening examination for mental health and behavioral disorders, unspecified (principal); F17.200 Nicotine dependence, unspecified, uncomplicated; I10 Essential (primary) hypertension
CPT/HCPCS: 36415; 72070; 72100; 80048; 80053; 80307; 81001; 84132; 85025; 96372; 99285; J1200; J1630; J2060; J3486; 80320; 99284; G0480